=== PATIENT | female | born 1940 | race Caucasian/White ===

== ENCOUNTER 2017-11-22 15:32 | Inpatient (IN) ==
[2017-11-22] MEDS ORDERED: VISTARIL INJ IM PRN (16:12)
[2017-11-22] MEDS ORDERED: TYLENOL PO PRN (16:12)
[2017-11-22] MEDS ORDERED: NITROSTAT SL PRN (16:12)
[2017-11-22] MEDS ORDERED: ATROPINE SULFATE PFS IVP PRN (16:12)
[2017-11-22] MEDS ORDERED: MORPHINE 4 MG/ML VIAL IVP PRN (16:12)
[2017-11-22 16:48] VITALS: BMI 21.4
--- NOTE | 2017-11-22 16:59 | DI ---
EXAM: Single frontal view of the chest HISTORY: Acute bronchitis with history of chronic obstructive pulmonary disease. COMPARISON: Chest x-ray 02/20/2008 FINDINGS: Cardiomediastinal silhouette is normal. There is no pneumothorax or pleural effusion. The lungs are hyperinflated. There are calcified granulomas. There is no mass or consolidation. The o sseous structures are unremarkable. IMPRESSION: No acute cardiopulmonary process or consolidation with evidence of chronic obstructive p ulmonary disease.
[2017-11-22] MEDS: XOPENEX 1.25 MG NEB SCH ×3 (17:15→22:42)
[2017-11-22] MEDS: ROCEPHIN 1 GM in SODIUM CHLORIDE 50 ML IV SCH (19:11)
[2017-11-22] MEDS: SOLU-CORTEF 250 MG IVP SCH ×2 (19:11→20:14)
[2017-11-22] MEDS: ZITHROMAX PO SCH (19:11)
[2017-11-22] MEDS: DEXTROSE 5%-1/2NS IV SOLUTION 1,000 ML IV SCH (19:11)
[2017-11-22] MEDS: CARDIZEM PO SCH (20:14)
[2017-11-22] MEDS: ZOCOR PO SCH (20:14)
[2017-11-23] MEDS: XOPENEX 1.25 MG NEB SCH ×4 (04:40→22:30)
[2017-11-23] MEDS: SYNTHROID PO SCH (05:29)
[2017-11-23] MEDS: SOLU-CORTEF 250 MG IVP SCH ×3 (05:29→20:05)
[2017-11-23] MEDS: DEXTROSE 5%-1/2NS IV SOLUTION 1,000 ML IV SCH ×2 (06:17→17:58)
[2017-11-23] MEDS: ASPIRIN EC PO SCH (08:38)
[2017-11-23] MEDS: ROCEPHIN 1 GM in SODIUM CHLORIDE 50 ML IV SCH (08:38)
[2017-11-23] MEDS: ZITHROMAX PO SCH (08:39)
[2017-11-23] MEDS: CARDIZEM PO SCH ×2 (08:39→20:05)
--- NOTE | 2017-11-23 10:07 | PCM.PROG ---
Attending Provider: ATTENDING PROVIDER: Dr. ZOLTAN ARCE This patient is seen with Catie Mercado, Nurse Practitioner. DATE OF SERVICE: 11/23/17 SUBJECTIVE: This 77 year old WHITE/ F was hospitalized 11/22/17. The patient is lying in bed, alert. She is resting comfortably, shortness of breath improved. REVIEW OF SYSTEMS: CONSTITUTIONAL: Fatigue. No night sweats. No malaise, lethargy. No fever or chills. HEENT: Eyes: No visual changes. No eye pain. No eye discharge. ENT: No runny nose. No epistaxis. No sinus pain. No odynophagia. No congestion. RESPIRATORY: Cough, no congestion. No hemoptysis. No shortness of breath. CARDIOVASCULAR: No angina symptoms. No CHF symptoms. No atypical chest pain for CAD. No palpitations. No orthopnea.. GASTROINTESTINAL: No abdominal pain. No nausea or vomiting. No diarrhea or constipation. No hematemesis. No hematochezia. GENITOURINARY: No urgency. No frequency. No dysuria. No hematuria. No obstructive symptoms. No discharge. No pain. No significant abnormal bleeding. MUSCULOSKELETAL: No musculoskeletal pain; no joint swelling. NEUROLOGICAL: Awake, alert, oriented to time, place and person. No headache. No neck pain. No syncope. No seizures. No dizziness. PSYCHIATRIC: Not anxious. No depression. No suicidal thoughts. No homicidal thoughts. SKIN: No rash. No lesions. No wounds. ENDOCRINE: No unexplained weight loss. No weight gain. HEMATOLOGIC/LYMPHATIC: No anemia. No purpura. No petechiae. No prolonged or excessive bleeding. No palpable lymph nodes. PHYSICAL EXAMINATION: GENERAL: The patient is awake, alert and oriented, lying in bed in no distress. VITAL SIGNS: Temperature 97.5 F, Pulse 82, Respiratory Rate 16, BP 103/66, Pulse Ox 96% HEENT: Head normocephalic, atraumatic. Eyes: Extraocular muscles are intact. Pupils are equal, round and reactive to light and accommodation. Ears: No lesions. Nose appeared normal. Throat: No exudate or erythema. NECK: Supple. No JVD, no carotid bruit. No lymphadenopathy or thyromegaly. LUNGS: Diminished breath sounds bilaterally. Clear to auscultation. Percussion note normal. Chest symmetrical. HEART: S1, S2, no S3. No murmurs. No cyanosis or clubbing. No ascites. Pulses: Dorsalis pedis and posterior tibial pulses +1 to +2 both sides. ABDOMEN: Soft. Non-tender. Bowel sounds active. No CVA tenderness. No mass felt. EXTREMITIES: No edema. Full range of motion of all extremities, equal. NEUROLOGIC: No focal deficit. Cranial nerves II through XII are grossly intact. No headache, no double vision or headache. SKIN: Not dry. Intact. Turgor-normal. LYMPHATIC: No palpable lymph nodes/no lymphedema. MUSCULOSKELETAL: Normal joints with no swelling. Muscle tone is normal. LAB REVIEW: 11/23/17 00:50 11/23/17 00:50 11/23/17 00:50: Sodium 138, Potassium 3.8, Chloride 103, Carbon Dioxide 24, Anion Gap 14.8, BUN 13, Creatinine 0.84, Estimated GFR (MDRD) 66.00, BUN/ Creatinine Ratio 15.47, Glucose 244 H D, Calcium 8.8, Total Bilirubin < 0.3, AST 23, ALT 29, Alkaline Phosphatase 53, Total Protein 6.6, Albumin 3.0 L, Globulin 3.6, Albumin/Globulin Ratio 0.83 11/23/17 00:50: WBC 7.18, RBC 3.54 L, Hgb 10.4 L, Hct 30.7 L, MCV 86.7, MCH 29.4 , MCHC 33.9, RDW Coeff of Edgar 13.2, Plt Count 286, Immature Gran % (Auto) 0.4, Neut % (Auto) 89.1, Lymph % (Auto) 8.6 L, Owen % (Auto) 1.7, Eos % (Auto) 0.1, Baso % (Auto) 0.1, Immature Gran # (Auto) 0.0, Neut # 6.4, Lymph # 0.6, Owen # 0.1 L, Eos # 0.0, Baso # 0.0 11/23/17 00:50: Total Creatine Kinase 32, Troponin I 0.0100 11/22/17 17:10: Urine Color Yellow, Urine Clarity Clear, Urine pH 7.5, Ur Specific [place] 1.015, Urine Protein Negative, Urine Glucose (UA) Negative, Urine Ketones Negative, Urine Blood Negative, Urine Nitrite Negative, Urine Bilirubin Negative, Urine Urobilinogen 0.2, Ur Leukocyte Esterase Negative 11/22/17 16:35: TSH 1.358, Free T4 1.31 H 11/22/17 16:35: Total Creatine Kinase 39, Troponin I < 0.0100 11/22/17 16:35: Sodium 139, Potassium 3.7, Chloride 104, Carbon Dioxide 23, Anion Gap 15.7, BUN 15, Creatinine 0.73, Estimated GFR (MDRD) 78.00, BUN/ Creatinine Ratio 20.54, Glucose 103, Calcium 9.3, Total Bilirubin 0.3, AST 28, ALT 32, Alkaline Phosphatase 57, Total Protein 7.1, Albumin 3.3 L, Globulin 3.8 , Albumin/Globulin Ratio 0.87 11/22/17 16:35: WBC 8.22, RBC 3.75 L, Hgb 11.2 L, Hct 32.1 L, MCV 85.6, MCH 29.9 , MCHC 34.9, RDW Coeff of Edgar 13.3, Plt Count 314, Immature Gran % (Auto) 0.4, Neut % (Auto) 71.2, Lymph % (Auto) 17.0, Owen % (Auto) 10.0, Eos % (Auto) 0.9, Baso % (Auto) 0.5, Immature Gran # (Auto) 0.0, Neut # 5.9, Lymph # 1.4, Owen # 0.8, Eos # 0.1, Baso # 0.0 11/22/17 16:03: Puncture Site Rr, O2 Saturation 96.0, ABG pH 7.519 H*, ABG pCO2 32.3 L, ABG pO2 74.0 L, ABG HCO3 26.3 H, ABG Total CO2 27, ABG Base Excess 3 H, Chinedu Test +, FiO2 % 21.0 ASSESSMENT: 1. ACUTE BRONCHITIS 2. COPD 3. SOB IMPROVED 4. ANEMIA PLAN: 1. Stop IV fluids after this bag finishes 2. Continue IV steroids and antibiotics Plan and coordination of the patient's care discussed in the presence of Customs Compliance Manager and nurse. CONDITION: Stable SCRIBED BY: KERRY PALACIOS Laboratory Associate scribed while in presence of service performed by Dr. Arce/Catie Mercado APRN on 11/23/17 ([id number])
[2017-11-23] MEDS: ZOCOR PO SCH (20:05)
[2017-11-24] MEDS: XOPENEX 1.25 MG NEB SCH ×4 (04:35→23:15)
[2017-11-24] MEDS: SOLU-CORTEF 250 MG IVP SCH ×3 (05:54→20:07)
[2017-11-24] MEDS: SYNTHROID PO SCH (05:54)
--- NOTE | 2017-11-24 08:19 | HP ---
DATE OF SERVICE: 11/22/17 REASON FOR HOSPITALIZATION/HISTORY OF PRESENT ILLNESS: Sick times 3 weeks=OK. Shortness of breath, cough, congestion and wheezing times three days. Lost greater than 10 pounds. Not eaten much times 7 days. PAST MEDICAL HISTORY: COPD/Smoking Mild Anemia Hyperlipidemia Hypothyroidism PAST SURGICAL HISTORY: None REVIEW OF SYSTEMS: CONSTITUTIONAL: No fever, Fatigue. HEENT: Sinus drainage, no sore throat. RESPIRATORY: Cough, no congestion. CARDIOVASCULAR: No atypical chest pain for coronary artery disease. No angina , CHF symptoms, palpitations. Shortness of breath. GASTROINTESTINAL: No melena or abdominal pain. No GERD. GENITOURINARY: No hematuria, no prostatism, no polyuria. SALES REPRESENTATIVE ADDING MACHINES: No blackout, no dizziness, no headache, no double vision. MUSCULOSKELETAL: No osteoarthritis pain, no joint swelling. ENDOCRINE: No weight loss, no weight gain. SKIN: Not dry, no rash. PSYCHIATRIC: Anxious, no depression, no suicidal thoughts, no homicidal thoughts. SOCIAL HISTORY: Marital Status: Single. Alcohol Usage: No. Tobacco Usage: Yes. FAMILY HISTORY: Father- unknown Mother- brain tumor Brother- 1/2 unknown health- is alive Sister- Cancer, 1 sister alive 73 COPD MEDICATIONS: Vitamin D 400 unit capsule [place] 3 fish oil capsule Iron 325mg take one tablet PO daily Calcium Dyazide 37.5-25mg take one capsule PO daily Simvastatin 20mg PO daily Levothyroxine 25mcg PO daily Aspirin 81mg PO daily ALLERGIES: No known allergies to medication PHYSICAL EXAMINATION: V/S: Pulse 117, blood pressure 127/62, temperature 97.3, Pulse ox 94%. GENERAL APPEARANCE: Oriented times three. HEENT: Normal. NECK: No JVP, no bruits. RESPIRATORY: Wheezing. Shortness of breath. CARDIOVASCULAR: S1, S2, no S3, no murmurs. No cyanosis, clubbing. No ascites. GI/ABDOMEN: No tenderness. Bowel sounds are active. EXTREMITIES: edema, pulses +1, equal. SALES REPRESENTATIVE ADDING MACHINES: Deep tendon reflexes, sensory, motor and gait all normal. RECTAL: Patient refused/PELVIC: Patient refused.. ASSESSMENT: 1. Acute bronchitis 2. COPD 3. Smoking 4. Pleuritic pain 5. Dehydration 6. Mild anemia 7. Hyperlipidemia 8. Hypothyroidism PLAN: 1. Admit 2. Regular diet 3. ABG with oxygen 2 liters 4. Routine telemetry orders 5. 125mg IV Solu-Cortef now and 8 hourly 6. Simvastatin 20mg PO daily 7. Cardizem 60mg PO twice a day 8. 1000 CC D5 1/2 normal saline 12 hourly 9. Rocephin 1 gram IV 10.Zithromax 500mg PO today and daily x3 days 11.Sputum for culture and sensitivity 12.T4 and TSH 13.Synthroid 50mcg PO daily 14.Xopenex Q 06 hourly and one now TIME SPENT: More than 70 minutes. MTDD
[2017-11-24] MEDS: ROCEPHIN 1 GM in SODIUM CHLORIDE 50 ML IV SCH (08:34)
[2017-11-24] MEDS: ZITHROMAX PO SCH (08:35)
[2017-11-24] MEDS: ASPIRIN EC PO SCH (08:35)
--- NOTE | 2017-11-24 10:08 | PCM.PROG ---
Attending Provider: ATTENDING PROVIDER: Dr. ZOLTAN ARCE DATE OF SERVICE: 11/24/17 SUBJECTIVE: This 77 year old WHITE/ F was hospitalized 11/22/17. The patient is hospitalized with acute bronchitis, severe chronic lung disease, borderline hypertension, smoker, and dyslipidenmia. REVIEW OF SYSTEMS: CONSTITUTIONAL: No night sweats. No fatigue, malaise, lethargy. No fever or chills. HEENT: Eyes: No visual changes. No eye pain. No eye discharge. ENT: No runny nose. No epistaxis. No sinus pain. No odynophagia. No congestion. RESPIRATORY: No cough, no congestion. No hemoptysis. Shortness of breath on exertion. CARDIOVASCULAR: No angina symptoms. No CHF symptoms. No atypical chest pain for CAD. No palpitations. No orthopnea.. GASTROINTESTINAL: No abdominal pain. No nausea or vomiting. No diarrhea or constipation. No hematemesis. No hematochezia. GENITOURINARY: No urgency. No frequency. No dysuria. No hematuria. No obstructive symptoms. No discharge. No pain. No significant abnormal bleeding. MUSCULOSKELETAL: No musculoskeletal pain; no joint swelling. NEUROLOGICAL: Awake, alert, oriented to time, place and person. No headache. No neck pain. No syncope. No seizures. No dizziness. PSYCHIATRIC: Not anxious. No depression. No suicidal thoughts. No homicidal thoughts. SKIN: No rash. No lesions. No wounds. ENDOCRINE: No unexplained weight loss. No weight gain. HEMATOLOGIC/LYMPHATIC: No anemia. No purpura. No petechiae. No prolonged or excessive bleeding. No palpable lymph nodes. PHYSICAL EXAMINATION: GENERAL: The patient is awake, alert and oriented, lying/sitting in bed in no distress. VITAL SIGNS: Temperature 97.8 F, Pulse 76, Respiratory Rate 16, BP 96/61, Pulse Ox 97% HEENT: Head normocephalic, atraumatic. Eyes: Extraocular muscles are intact. Pupils are equal, round and reactive to light and accommodation. Ears: No lesions. Nose appeared normal. Throat: No exudate or erythema. NECK: Supple. No JVD, no carotid bruit. No lymphadenopathy or thyromegaly. LUNGS: Decreased breath sounds. Clear to auscultation. No audible wheezing. Percussion note normal. Chest symmetrical. HEART: S1, S2, no S3. No murmurs. No cyanosis or clubbing. No ascites. Pulses: Dorsalis pedis and posterior tibial pulses +1 both sides. ABDOMEN: Soft. Non-tender. Bowel sounds active. No CVA tenderness. No mass felt. EXTREMITIES: No edema. Full range of motion of all extremities, equal. NEUROLOGIC: No focal deficit. Cranial nerves II through XII are grossly intact. No headache, no double vision or headache. SKIN: Warm and dry. Intact. Turgor-normal. LYMPHATIC: No palpable lymph nodes/no lymphedema. MUSCULOSKELETAL: Normal joints with no swelling. Muscle tone is normal. LAB REVIEW: 11/24/17 04:15 11/24/17 04:15 11/24/17 04:15: Sodium 137, Potassium 3.6, Chloride 106, Carbon Dioxide 22 L, Anion Gap 12.6, BUN 12, Creatinine 0.82, Estimated GFR (MDRD) 68.00, BUN/ Creatinine Ratio 14.63, Glucose 156 H, Calcium 8.9, Total Bilirubin 0.3, AST 30 , ALT 39, Alkaline Phosphatase 47 L, Total Protein 6.6, Albumin 3.0 L, Globulin 3.6, Albumin/Globulin Ratio 0.83 11/24/17 04:15: WBC 13.40 H D, RBC 3.68 L, Hgb 10.6 L, Hct 32.3 L, MCV 87.8, MCH 28.8, MCHC 32.8, RDW Coeff of Edgar 13.9, Plt Count 315, Immature Gran % (Auto ) 0.9, Neut % (Auto) 86.6, Lymph % (Auto) 7.4 L, Henry % (Auto) 5.0, Eos % (Auto ) 0.0, Baso % (Auto) 0.1, Immature Gran # (Auto) 0.1, Neut # 11.6 H, Lymph # 1.0 , Henry # 0.7, Eos # 0.0, Baso # 0.0 ASSESSMENT: 1. ACUTE BRONCHITIS 2. CHRONIC LUNG DISEASE 3. HYPERTENSION 4. DYSLIPIDEMIA 5. ANEMIA 6. HYPERGLYCEMIA PLAN: 1. D/C Cardizem 2. The patient at times is confused mixed up about medications will do mmse 3. Anemia profile 4. A1C 5. Up and about 6. D/C IV fluids 7. PFT 8. Echo 2D 'M' Mode Plan and coordination of the patient's care discussed in the presence of Engineering Manager Electronics and nurse. EDUCATION: Discussed with the patient the need for colonoscopy. She has never had one. Explained the reason is anemia and strongly advised her to take iron on regular basis. Counseling for smoking done. CONDITION: Stable SCRIBED BY: KERRY PALACIOS Adobe Layer Helper scribed while in presence of service performed by Dr. ZOLTAN ARCE on 11/24/17 ([id number])
[2017-11-24] MEDS: ZOCOR PO SCH (20:08)
[2017-11-25] MEDS: XOPENEX 1.25 MG NEB SCH ×2 (05:50→11:06)
[2017-11-25] MEDS: SOLU-CORTEF 250 MG IVP SCH (05:56)
[2017-11-25] MEDS: SYNTHROID PO SCH (05:56)
[2017-11-25] MEDS: ROCEPHIN 1 GM in SODIUM CHLORIDE 50 ML IV SCH (08:16)
[2017-11-25] MEDS: ASPIRIN EC PO SCH (08:16)
[2017-11-25 10:24] VITALS: BP 131/79; TEMP 98.1
--- NOTE | 2017-11-25 11:01 | PCM.PROG ---
Attending Provider: ATTENDING PROVIDER: Dr. ZOLTAN ARCE This patient is seen with Catie Mercado, Nurse Practitioner. DATE OF SERVICE: 11/25/17 SUBJECTIVE: This 77 year old WHITE/ F was hospitalized 11/22/17. The patient is lying in bed, alert. The patient has been up and about, walked without any problem. She is feeling much better. She is eating well. She is ready to go home. REVIEW OF SYSTEMS: CONSTITUTIONAL: No night sweats. No fatigue, malaise, lethargy. No fever or chills. HEENT: Eyes: No visual changes. No eye pain. No eye discharge. ENT: No runny nose. No epistaxis. No sinus pain. No odynophagia. No congestion. RESPIRATORY: Cough. No congestion. No hemoptysis. No shortness of breath. CARDIOVASCULAR: No angina symptoms. No CHF symptoms. No atypical chest pain for CAD. No palpitations. No orthopnea.. GASTROINTESTINAL: No abdominal pain. No nausea or vomiting. No diarrhea or constipation. No hematemesis. No hematochezia. GENITOURINARY: No urgency. No frequency. No dysuria. No hematuria. No obstructive symptoms. No discharge. No pain. No significant abnormal bleeding. MUSCULOSKELETAL: No musculoskeletal pain; no joint swelling. NEUROLOGICAL: Awake, alert, oriented to time, place and person. No headache. No neck pain. No syncope. No seizures. No dizziness. PSYCHIATRIC: Not anxious. No depression. No suicidal thoughts. No homicidal thoughts. SKIN: No rash. No lesions. No wounds. ENDOCRINE: No unexplained weight loss. No weight gain. HEMATOLOGIC/LYMPHATIC: No anemia. No purpura. No petechiae. No prolonged or excessive bleeding. No palpable lymph nodes. PHYSICAL EXAMINATION: GENERAL: The patient is awake, alert and oriented, lying/sitting in bed in no distress. VITAL SIGNS: Temperature 97.8 F, Pulse 77, Respiratory Rate 20, BP 118/69, Pulse Ox 95% HEENT: Head normocephalic, atraumatic. Eyes: Extraocular muscles are intact. Pupils are equal, round and reactive to light and accommodation. Ears: No lesions. Nose appeared normal. Throat: No exudate or erythema. NECK: Supple. No JVD, no carotid bruit. No lymphadenopathy or thyromegaly. LUNGS: Diminished breath sounds bilaterally. Clear to auscultation. Percussion note normal. Chest symmetrical. HEART: S1, S2, no S3. No murmurs. No cyanosis or clubbing. No ascites. Pulses: Dorsalis pedis and posterior tibial pulses +1 to +2 both sides. ABDOMEN: Soft. Non-tender. Bowel sounds active. No CVA tenderness. No mass felt. EXTREMITIES: No edema. Full range of motion of all extremities, equal. NEUROLOGIC: No focal deficit. Cranial nerves II through XII are grossly intact. No headache, no double vision or headache. SKIN: Not dry. Intact. Turgor-normal. LYMPHATIC: No palpable lymph nodes/no lymphedema. MUSCULOSKELETAL: Normal joints with no swelling. Muscle tone is normal. LAB REVIEW: 11/25/17 05:00 11/25/17 05:00 11/25/17 05:00: Sodium 142, Potassium 4.0, Chloride 109 H, Carbon Dioxide 25, Anion Gap 12.0, BUN 14, Creatinine 0.78, Estimated GFR (MDRD) 72.00, BUN/ Creatinine Ratio 17.94, Glucose 148 H, Calcium 8.7, Total Bilirubin 0.3, AST 49 H, ALT 69 D, Alkaline Phosphatase 48 L, Total Protein 6.1, Albumin 2.8 L, Globulin 3.3, Albumin/Globulin Ratio 0.85 11/25/17 05:00: WBC 13.21 H, RBC 3.45 L, Hgb 10.1 L, Hct 29.9 L, MCV 86.7, MCH 29.3, MCHC 33.8, RDW Coeff of Edgar 14.2, Plt Count 315, Immature Gran % (Auto) 1.6, Neut % (Auto) 84.2, Lymph % (Auto) 7.9 L, [place] % (Auto) 6.2, Eos % (Auto) 0.0, Baso % (Auto) 0.1, Immature Gran # (Auto) 0.2, Neut # 11.1 H, Lymph # 1.0, [place] # 0.8, Eos # 0.0, Baso # 0.0 11/24/17 08:45: Transferrin 198 L 11/24/17 08:45: Vitamin B12 663 11/24/17 04:25: Reticulocyte % (Auto) 2.00, Absolute Retic 0.0730, Retic Hgb Equivalent 34.9 11/24/17 04:25: Hemoglobin A1c 5.9 11/24/17 04:20: Iron 80, TIBC 224 L, % Saturation 36, Unsat Iron Binding 144, Ferritin 323.63 H, Folate 11.4 ASSESSMENT: 1. ACUTE BRONCHITIS 2. CHRONIC LUNG DISEASE 3. HYPERTENSION 4. DYSLIPIDEMIA 5. ANEMIA 6. HYPERGLYCEMIA PLAN: 1. D/C home 2. Will see next week in the office 3. Keflex 500 mg t.i.d. for next 7 days 4. Prednisone 10 mg b.i.d. times 5 days Plan and coordination of the patient's care discussed in the presence of Brainer and nurse. CONDITION: Stable SCRIBED BY: KERRY PALACIOS Table Assembler Metal scribed while in presence of service performed by Dr. Arce/Catie Mercado APRN on 11/25/17 ([id number])
--- NOTE | 2017-11-25 11:17 | CM.DICTOOL ---
ADMISSION: 11/22/17 15:32 DISCHARGE: 11/25/17 DATE OF SERVICE: 11/25/17 FINAL DIAGNOSIS ACUTE BRONCHITIS CHRONIC LUNG DISEASE TOBACCO USE (1 PPD X 40+ YEARS) HYPERTENSION ANEMIA DYSLIPIDEMIA NONCOMPLIANCE WITH MEDICATIONS LAST VITALS Temp Pulse Resp BP Pulse Ox 98.1 F 85 20 131/79 96 11/25/17 10:00 11/25/17 10:00 11/25/17 10:00 11/25/17 10:00 11/25/17 10:00 ACTIVE HOME MEDICATIONS Aspirin (Aspirin Ec) 81 mg PO DAILYWM TIMUR Last Admin: 11/25/17 08:16 Dose: 81 mg Calcium Carbonate/Vit D3 1 tab PO DAILY Ferrous Sulfate (Iron) 325 mg PO DAILY Levothyroxine Sodium (Synthroid) 50 mcg PO QDAC TIMUR (INCREASED FROM 25 MCG PO DAILY) Last Admin: 11/25/17 05:56 Dose: 50 mcg [place]-3Dha/Epa/Fish Oil ([place] 3-Fish Oil) 1 cap PO DAILY Simvastatin (Zocor) 20 mg PO BEDTIME TIMUR Last Admin: 11/24/17 20:08 Dose: 20 mg ALLERGIES No Known Allergies Allergy (Unverified 11/22/17 22:33) NEW PRESCRIPTIONS: KEFLEX 500 MG, TAKE ONE CAPSULE BY MOUTH THREE TIMES DAILY FOR 7 DAYS PREDNISONE 10 MG, TAKE ONE TABLET BY MOUTH TWICE DAILY WITH FOOD FOR 5 DAYS ONLY SMOKING: CURRENT EVERY DAY SMOKER (1 PPD X 40+ YEARS) THE PATIENT HAS BEEN PROVIDED EDUCATION AND INFORMATION REGARDING THE RISKS OF TOBACCO USE. SHE HAS ALSO BEEN REMINDED OF THE BENEFITS FROM COMPLETE CESSATION. SHE HAS NOT COMMITTED TO CESSATION AND WOULD BENEFIT FROM REINFORCEMENT OF THIS INFORMATION THROUGH THE OUTPATIENT SETTING. DISEASE SPECIFIC EDUCATION: BRONCHITIS ANEMIA HOME MEDICATIONS AND DOSE CHANGES NEW PRESCRIPTIONS POSSIBLE SIDE EFFECTS WITH MARKET ASSET PROTECTION MANAGER STEROID USE MEDICATION COMPLIANCE IMPORTANCE FOLLOW UP LAB REVIEW: 11/25/17 05:00 11/25/17 05:00 11/25/17 08:10: Digoxin < 0.30 L 11/25/17 05:00: Sodium 142, Potassium 4.0, Chloride 109 H, Carbon Dioxide 25, Anion Gap 12.0, BUN 14, Creatinine 0.78, Estimated GFR (MDRD) 72.00, BUN/ Creatinine Ratio 17.94, Glucose 148 H, Calcium 8.7, Total Bilirubin 0.3, AST 49 H, ALT 69 D, Alkaline Phosphatase 48 L, Total Protein 6.1, Albumin 2.8 L, Globulin 3.3, Albumin/Globulin Ratio 0.85 11/25/17 05:00: WBC 13.21 H, RBC 3.45 L, Hgb 10.1 L, Hct 29.9 L, MCV 86.7, MCH 29.3, MCHC 33.8, RDW Coeff of [place] 14.2, Plt Count 315, Immature Gran % (Auto) 1.6, Neut % (Auto) 84.2, Lymph % (Auto) 7.9 L, [place] % (Auto) 6.2, Eos % (Auto) 0.0, Baso % (Auto) 0.1, Immature Gran # (Auto) 0.2, Neut # 11.1 H, Lymph # 1.0, [place] # 0.8, Eos # 0.0, Baso # 0.0 11/24/17 08:45: Transferrin 198 L PLAN: DISCHARGE HOME TODAY RETURN TO SEE DR. ARCE ON 12/01/74 AT 10:45 A.M. RESUME YOUR HOME MEDICATIONS PER LIST PROVIDED BY THE NURSING STAFF DO NOT TAKE YOUR TRIAMTERENE/HCTZ (DYAZIDE) PLEASE NOTE THE INCREASE IN YOUR LEVOTHYROXINE SODIUM (SYNTHROID) TO 50 MCG BY MOUTH DAILY TAKE THIS MEDICATION AT LEAST 30 MINUTES PRIOR TO EATING BREAKFAST ON AN EMPTY STOMACH NEW PRESCRIPTIONS KEFLEX 500 MG, TAKE ONE CAPSULE BY MOUTH THREE TIMES DAILY FOR 7 DAYS PREDNISONE 10 MG, TAKE ONE TABLET BY MOUTH TWICE DAILY WITH FOOD FOR 5 DAYS ONLY ACTIVITY GET PLENTY OF REST AT HOME. GRADUALLY INCREASE YOUR ACTIVITY LEVEL ACCORDING TO YOUR TOLERATION DIET HEALTHY HEART SUMMARY THE PATIENT IS ALERT AND ORIENTED X3. SHE CURRENTLY RESIDES AT HOME ALONE. SHE IS SINGLE AND HAS NEVER BEEN . HER BROTHER AND [id number] RESIDE CLOSE BY AND PROVIDE ASSISTANCE WHEN NECESSARY. THE PATIENT IS INDEPENDENT WITH ADL'S AND HAS NOT REQUIRES ANY DME, HOME HEALTH OR HOMEMAKING SERVICES. SHE DESIRES TO RETURN HOME AT DISCHARGE. THE SKIN TURGOR IS GOOD AND INTACT. THERE ARE NO DECUBITUS ULCERS. HYDRATION AND NUTRITIONAL STATUS ARE GOOD. THE PATIENT HAS SHOWN REMARKABLE CLINICAL IMPROVEMENT. TODAY SHE SAYS SHE IS FEELING MUCH BETTER AND IS READY FOR DISCHARGE HOME. SHE HAS BEEN PROVIDED VERBAL AND WRITTEN DISCHARGE INSTRUCTIONS. CURRENT CODE STATUS FULL CODE MOHAN GONZALES APRN MD.D ZOYA
--- NOTE | 2017-11-25 11:18 | ECHO2D ---
Date of Exam: 11/24/17 Ordering Physician: DR. ZOLTAN ARCE Room #: [id number] Reason for Echo: SOB, HYPOTENSION, WEAKNESS M-Mode Normal Adult Results LV Dimensions Normal Adult Results AoV Opening excursions >1.6 >1.6 LVEDD-base- 3.5-5.8 3.6 Ao root dimensions 2.0-3.7 3.3 LVESD-base- 3.1-4.6 L. Atrium dimensions 1.9-3.8 3.6 Post. Wall thickness 0.8-1.1 1.1 IV septum (thickness) 0.7-1.2 1.0 Post. Wall excursion 0.72-1.3 NORMAL Septal motion NORMAL Systolic motion R. Ventricular cavity 1.5-2.0 NORMAL LVEF 60% 64% Paradoxical septal wall motion NORMAL 2-D : 2-D M Mode Echocardiogram was performed using apical four chamber and left parasternal long and short axis views. Mitral, tricuspid and aortic valves appear to be normal. Contractility of the left ventricle seems to be normal, so is the cavity size. Left atrial cavity size and aortic root appear to be normal. There is no pericardial effusion. There is no thrombus noted in the left ventricular or left aortic cavity. No mitral valve prolapse noted. M-MODE: MV: NORMAL AV: NORMAL TV: NORMAL PV: CHAMBER SIZE: NORMAL WALL MOTION: NORMAL PERICARDIUM: NORMAL INTERPRETATION: 1. NORMAL 2 "D" "M" MODE [facility]
--- NOTE | 2017-11-26 13:36 | PN ---
DATE OF SERVICE: 11/23/17 SUBJECTIVE: 77 year old white female hospitalized on 11/22/17 with acute bronchitis, severe chronic lung disease, shortness of breath. The patient has hyperglycemia from steroid therapy, also has anemia. The patient is feeling better. PHYSICAL EXAMINATION: HEENT: Head normocephalic, atraumatic. Eyes: Extraocular muscles are intact. Pupils are equal, round and reactive to light and accommodation. Ears: No lesions. Nose appeared normal. Throat: No exudate or erythema. NECK: Supple. No JVD, no carotid bruit. No lymphadenopathy or thyromegaly. LUNGS:Decreased breath sounds but clear to auscultation. Percussion note normal. Chest symmetrical. HEART: S1, S2, no S3. No murmurs. No cyanosis or clubbing. No ascites. Pulses: Dorsalis pedis and posterior tibial pulses +1 to +2 both sides. ABDOMEN: Soft. Nontender. Bowel sounds active. No CVA tenderness. No mass felt. EXTREMITIES: No edema. Full range of motion of all extremities, equal. NEUROLOGIC: No focal deficit. Cranial nerves II through XII are grossly intact. No headache, no double vision or headache. SKIN: Not dry. Intact. Turgor - normal. LYMPHATIC: No palpable lymph nodes/no lymphedema. MUSCULOSKELETAL: Normal joints with no swelling. Muscle tone is normal. CONDITION: Improving The patient was seen and examined with Nurse Practitioner. PLAN: 1. Continue Steroids and NEBS TIME SPENT: More than 30 minutes. Plan and coordination of the patient's care discussed in the presence of nurse. MARTHA
--- NOTE | 2017-12-03 11:03 | PN ---
DATE OF SERVICE: 11/25/17 SUBJECTIVE: The patient is up and about doing well, awake. REVIEW OF SYSTEMS: CONSTITUTIONAL: No night sweats. No fatigue, malaise, lethargy. No fever or chills. HEENT: Eyes: No visual changes. No eye pain. No eye discharge. ENT: No runny nose. No epistaxis. No sinus pain. No sore throat. No odynophagia. No congestion. RESPIRATORY: No cough, no congestion. No hemoptysis. No shortness of breath. CARDIOVASCULAR: No angina symptoms. No CHF symptoms. No atypical chest pain for CAD. No palpitations. No orthopnea. GASTROINTESTINAL: No abdominal pain. No nausea or vomiting. No diarrhea or constipation. No hematemesis. No hematochezia. GENITOURINARY: No urgency. No frequency. No dysuria. No hematuria. No obstructive symptoms. No discharge. No pain. No significant abnormal bleeding. MUSCULOSKELETAL: No musculoskeletal pain; no joint swelling. NEUROLOGICAL: No headache. No neck pain. No syncope. No seizures. No dizziness. PSYCHIATRIC: Not anxious. No depression. No suicidal thoughts. No homicidal thoughts. SKIN: No rash. No lesions. No wounds. ENDOCRINE: No unexplained weight loss. No weight gain. HEMATOLOGIC/LYMPHATIC: No anemia. No purpura. No petechiae. No prolonged or excessive bleeding. No palpable lymph nodes. PHYSICAL EXAMINATION: HEENT: Head normocephalic, atraumatic. Eyes: Extraocular muscles are intact. Pupils are equal, round and reactive to light and accommodation. Ears: No lesions. Nose appeared normal. Throat: No exudate or erythema. NECK: Supple. No JVD, no carotid bruit. No lymphadenopathy or thyromegaly. LUNGS: Decreased breath sounds but clear to auscultation. Percussion note normal. Chest symmetrical. HEART: S1, S2, no S3. No murmurs. No cyanosis or clubbing. No ascites. Pulses: Dorsalis pedis and posterior tibial pulses +1 to +2 both sides. ABDOMEN: Soft. Nontender. Bowel sounds active. No CVA tenderness. No mass felt. EXTREMITIES: No edema. Full range of motion of all extremities, equal. NEUROLOGIC: No focal deficit. Cranial nerves II through XII are grossly intact. No headache, no double vision or headache. SKIN: Not dry. Intact. Turgor - normal. LYMPHATIC: No palpable lymph nodes/no lymphedema. MUSCULOSKELETAL: Normal joints with no swelling. Muscle tone is normal. The patient was seen and examined with the nurse practitioner. Likely, the patient will be discharged home. TIME SPENT: More than 30 minutes. Plan and coordination of the patient's care discussed in the presence of nurse. MARTHA
--- NOTE | 2018-01-03 07:59 | DS ---
DATE OF SERVICE: 11/25/17 FINAL DIAGNOSIS: 1. Acute bronchitis 2. Chronic lung disease 3. Tobacco use (1PPDx 40+years) 4. Hypertension 5. Anemia 6. Dyslipidemia 7. Noncompliance with medications. LAST VITALS: Temperature 98.1, pulse 85, respiratory rate 20, blood pressure 131/79 and pulse ox 96%. DISCHARGE INSTRUCTIONS: Discharge home today. Return to see Dr. Stokes on 12/01/17 at 10:45am. Resume home medication as per list provided by the nursing staff. Do not take Triamterene/HCTZ. Please note the increase in Levothyroxine sodium to 50mcg by mouth daily. Take this medication at least 30 minutes prior to eating breakfast on an empty stomach. MEDICATIONS AT DISCHARGE: Aspirin 81mg PO daily Calcium Carbonate/Vitamin D one tablet PO daily Ferrous Sulfate 325mg PO daily Synthroid 50mcg PO QDAC (increased from 25 mcg PO daily) [place] 3 Fish oil 1 capsule PO daily Zocor 20mg PO bedtime ALLERGIES: No known allergies NEW PRESCRIPTIONS: Keflex 500mg take one capsule by mouth three times daily for 7 days Prednisone 10,g take one tablet by mouth twice daily with food for 5 days only DIET INSTRUCTIONS: Healthy heart ACTIVITY: Get plenty of rest at home. Gradually increase activity level according to toleration SMOKING: Current everyday smoker.([id number]+ years) The patient has been provided education and information regarding the risks of tobacco use. She has also been reminded of the benefits from complete cessation. She has not committed to cessation and would benefit from reinforcement of this information through the outpatient setting. DISEASE SPECIFIC EDUCATION: Bronchitis Anemia Home medications and dose changes New prescriptions Possible side effects with intermediate card tender steroid use Medication compliance importance Followup HOSPITAL COURSE: This is a 77 year old white female who presented to our office with cough and congestion for the past week. She had been experiencing some low grade fever. She had not started with pain within inspiration and expiration and coughing more like pleuritic like pain. She was pale. Mucosa membranes were dry. It was felt that she was slight dehydrated. We admitted her and chest x-ray revealed changes associated with bronchitis, no pneumonia. She was placed on IV fluids D5 1/2 normal saline at 75cc an hour. We started her on Rocephin 1 gram IV daily along with Solu-Cortef 125mg IV Q 8 hours. She is a heavy smoker and has been intermediate card tender smoker. We started her on Xopenex NEB treatments Q 6 hours scheduled and continued her home medications. After the first 24 hours the states that she had felt remarkably better. She used oxygen for the first 24 hours and then it was continued. Her kidney functions slightly elevated on admission showing that she had a mild dehydration and after 24 hours of IV fluids this resolved. IV fluids were discontinued after 24 hours. She still had some slight pain with coughing the first day after admission so she kept another day on the IV steroids. On the day on discharge she had been up and about walking to the cafeteria. She had been eating 75-100% of her meals. She started that she was feeling much much better and she was not wearing at all and she does not wear oxygen at home. She started that she felt that she was ready to go home. All of her vital signs and labs have been stable. On day on discharged WBC 13.21 likely elevation due to IV steroid use, hgb 10.1, hct 29.9 , plt count 315, sodium 142, potassium 4.0, BUN 14, creatinine 0.78, sugar 148. She will be discharged home on Keflex 500mg PO three times a day for the next 7 days along with Prednisone 10mg twice a day for the next 5 days. We will followup with her next week in the office for a followup. On day of discharged again she had been eating 75-100% meals, up and about walking around in the hospital. Her vital signs on day of discharge temperature 97.8, heart rate 77, respiratory rate 20, blood pressure 118/69 and pulse ox 95%. She improved remarkably well over the course of 48 hours and we will discharge her home in stable condition. TIME SPENT: More than 60 minutes. MARTHA
== END 2017-11-25 11:35 | disposition home or self-care (01) | DRG 202 ==
LOC: MEDSURG B 15:32
PROVIDERS: ADMIT Internal Medicine; ATTEND Internal Medicine
DX: J20.9 Acute bronchitis, unspecified (principal); J44.0 Chronic obstructive pulmonary disease with (acute) lower respiratory infection; Z72.0 Tobacco use; I10 Essential (primary) hypertension; D64.9 Anemia, unspecified; E78.5 Hyperlipidemia, unspecified; R07.81 Pleurodynia; E86.0 Dehydration; E03.9 Hypothyroidism, unspecified; Z91.14 Patient's other noncompliance with medication regimen
CPT/HCPCS: 36415; 80053; 80162; 81001; 82550; 82607; 82728; 82746; 82803; 83036; 83540; 83550; 84439; 84443; 84466; 84484; 85025; 85045; 87070; 87186; 93005; 93010; 94640; 99223; 99232; 99239